=== PATIENT | male | born 1990 | race American Indian/Alaskan Native ===

== ENCOUNTER 2018-10-08 06:14 | Emergency (ER) | payer OTHER ==
[2018-10-08 06:20] VITALS: BP 123/78
[2018-10-08 06:54] LABS: Bilirubin,Urine NEG (Negative); Blood,Urine NEG (Negative); Color,Urine Yellow (Yellow); Hyaline Casts,Urine 3 /LPF; Mucus,Urine 3+ /HPF; Protein,Urine <15 mg/dL mg/dL (Negative); Urobilinogen,Urine < 2.0 mg/dL (<2.0)
[2018-10-08 07:23] LABS: Basophils % (Auto) 0.4 % (0.0-1.8); Eosinophils # (Auto) 0.1 K/mm3 (0.0-0.4); Eosinophils % (Auto) 1.3 % (0.0-4.3); Hematocrit 45.5 % (35.5-45.6); Hemoglobin 15.6 gm/dl (11.8-15.2); Lymphocytes # (Auto) 1.7 K/mm3 (1.2-5.4); Lymphocytes % (Auto) 19.5 % (13.4-35.0); Mean Corpuscular HGB Conc 34 % (32-34); Mean Corpuscular Volume 88 fl (84-94); Monocytes # (Auto) 0.5 K/mm3 (0.0-0.8); Monocytes % (Auto) 6.1 % (0.0-7.3); Platelet Count 253 K/mm3 (140-440); Red Blood Count 5.18 M/mm3 (3.65-5.03); Red Cell Distribution Width 14.2 % (13.2-15.2)
[2018-10-08] MEDS ORDERED: ALUM-MAG HYDROX-SIMETH 200-200-20MG/5ML PO ONE (07:29)
[2018-10-08] MEDS ORDERED: LIDOCAINE VISCOUS 2% PO ONE (07:29)
[2018-10-08] MEDS ORDERED: ZOFRAN ODT PO ONE (07:29)
[2018-10-08] MEDS ORDERED: PEPCID PO ONE (07:29)
--- NOTE | 2018-10-08 07:47 | Emergency Department Report ---
Vomiting/Diarrhea - HPI Chief Complaint: Abdominal Pain Stated Complaint: EMESIS/ABD PAIN Time Seen by Provider: 10/08/18 07:12 Duration: 3 Days Severity: mild Nausea/Vomiting Severity: None Diarrhea Severity: None Pain Severity: None Symptoms: Yes Able to Tolerate Fluids, No Watery Diarrhea, No Bloody diarrhea, No Fever, No Recent Unusual Foods, No Recent Untreated Water, No Recent use of Antibiotics, No Family w/ Similar Symptoms, No Contacts w/ Similar Symptoms, No Rash, No Hematuria, No Recent URI Symptoms Other History: Pt comes to ER with feeling sluggish after work. No diarrhea. [place] of vomiting at home. cough for 3 days. no fever. did not take anything prior to coming to ER. ambulatory ED Review of Systems ROS: Stated complaint: EMESIS/ABD PAIN Other details as noted in HPI Comment: All other systems reviewed and negative ED Past Medical Hx - Past Medical History Previous Medical History?: Yes Hx HIV: Yes Additional medical history: sickle cell trait - Surgical History Past Surgical History?: Yes Hx Appendectomy: Yes Additional Surgical History: testicle removed - Family History Family history: no significant - Social History Smoking Status: Never Smoker Substance Use Type: None - Medications Home Medications: Home Medications Medication Instructions Recorded Confirmed Last Taken Type Ondansetron [Zofran Odt] 4 mg PO Q8HR PRN #10 tab.rapdis 10/08/18 Unknown Rx Vomiting Diarrhea Exam - Exam General: Vital signs noted. No distress. Alert and acting appropriately. HEENT: Yes Moist Mucous Membranes, No Pharyngeal Erythema, No Pharyngeal Ex udates, No Rhinorrhea, No Conjuctival Injection Neck: No Adenopathy, No Rigidity Lungs: Yes Clear Lung Sounds, Yes Good Air Exchange, Yes Cough (per pt), No Wheezes, No Stridor Heart exam: Regular: Yes Abdomen: Tenderness: No Skin exam: Rash: No Neurologic: Alert and oriented, no deficits. Musculoskeletal: Unremarkable. ED Course Vital Signs 10/08/18 10/08/18 06:18 07:41 Temperature 97.8 F Pulse Rate 75 Respiratory 18 18 Rate Blood Pressure 123/78 [Right] O2 Sat by Pulse 100 99 Oximetry ED Medical Decision Making - Lab Data Result diagrams: 10/08/18 06:29 10/08/18 06:29 - Medical Decision Making Lab Results 10/08/18 10/08/18 10/08/18 Range/Units 06:27 06:29 06:29 WBC 8.8 (4.5-11.0) K/mm3 RBC 5.18 H (3.65-5.03) M/mm3 Hgb 15.6 H (11.8-15.2) gm/dl Hct 45.5 (35.5-45.6) % MCV 88 (84-94) fl MCH 30 (28-32) pg MCHC 34 (32-34) % RDW 14.2 (13.2-15.2) % Plt Count 253 (140-440) K/mm3 Lymph % (Auto) 19.5 (13.4-35.0) % [place] % (Auto) 6.1 (0.0-7.3) % Eos % (Auto) 1.3 (0.0-4.3) % Baso % (Auto) 0.4 (0.0-1.8) % Lymph # 1.7 (1.2-5.4) K/mm3 [place] # 0.5 (0.0-0.8) K/mm3 Eos # 0.1 (0.0-0.4) K/mm3 Baso # 0.0 (0.0-0.1) K/mm3 Seg Neutrophils % 72.7 H (40.0-70.0) % Seg Neutrophils # 6.4 (1.8-7.7) K/mm3 Sodium 142 (137-145) mmol/L Potassium 4.9 (3.6-5.0) mmol/L Chloride 101.2 (98-107) mmol/L Carbon Dioxide 25 (22-30) mmol/L Anion Gap 21 mmol/L BUN 11 (9-20) mg/dL Creatinine 1.0 (0.8-1.5) mg/dL Estimated GFR > 60 ml/min BUN/Creatinine Ratio 11 % Glucose 95 (75-100) mg/dL Calcium 9.3 (8.4-10.2) mg/dL Total Bilirubin 0.30 (0.1-1.2) mg/dL AST 22 (5-40) units/L ALT 20 (7-56) units/L Alkaline Phosphatase 54 (35-129) units/L Total Protein 8.6 H (6.3-8.2) g/dL Albumin 4.6 (3.9-5) g/dL Albumin/Globulin Ratio 1.2 % Lipase 16 (13-60) units/L Urine Color Yellow (Yellow) Urine Turbidity Slightly-cloudy (Clear) Urine pH 6.0 (5.0-7.0) Ur Specific [place] 1.024 (1.003-1.030) Urine Protein <15 mg/dl (Negative) mg/dL Urine Glucose (UA) Neg (Negative) mg/dL Urine Ketones Neg (Negative) mg/dL Urine Blood Neg (Negative) Urine Nitrite Neg (Negative) Urine Bilirubin Neg (Negative) Urine Urobilinogen < 2.0 (<2.0) mg/dL Ur Leukocyte Esterase Neg (Negative) Urine WBC (Auto) 1.0 (0.0-6.0) /HPF Urine RBC (Auto) 9.0 (0.0-6.0) /HPF U Epithel Cells (Auto) < 1.0 (0-13.0) /HPF Urine Bacteria (Auto) 1+ (Negative) /HPF Hyaline Casts 3 /LPF Urine Mucus 3+ /HPF Vital Signs 10/08/18 10/08/18 06:18 07:41 Temperature 97.8 F Pulse Rate 75 Respiratory 18 18 Rate Blood Pressure 123/78 [Right] O2 Sat by Pulse 100 99 Oximetry long discussion with pt and family. He is not newly diagnosed with HIV but every time he gets ill he gets nervous. He is on no meds- we discussed the role of meds. no fever no chills no travel VSS no vomiting in ER. taking po ambulatory dc home with follow up. - Differential Diagnosis ro infectious etiology Critical care attestation.: If time is entered above; I have spent that time in minutes in the direct care of this critically ill patient, excluding procedure time. ED Disposition Clinical Impression: Vomiting, HIV (human immunodeficiency virus infection) Disposition: DC-01 TO HOME OR SELFCARE Is pt being admited?: No Does the pt Need Aspirin: No Condition: Stable Instructions: Acute Nausea and Vomiting (ED) Additional Instructions: DIET TOLERATED MEDS ORDERED TODAY IN ER FOLLOW INSTRUCTIONS ON THE BOTTLE FOLLOW UP PCP WITHIN 48 HOURS TO ENSURE YOU ARE GETTING BETTER ACTIVITY TOLERATED MOTRIN OR TYLENOL FOR PAIN OR FEVER RETURN TO THE ER FOR WORSENING SYMPTOMS NOT RELIEVED BY YOUR MEDICATIONS. Prescriptions: Ondansetron [Zofran Odt] 4 mg PO Q8HR PRN #10 tab.rapdis PRN Reason: Vomiting Referrals: [facility] [Outside] - 3-5 Days Time of Disposition: 08:25
[2018-10-08 08:06] LABS: Alanine Aminotransferase 20 units/L (7-56); Albumin 4.6 g/dL (3.9-5); BUN/Creatinine Ratio 11; Blood Urea Nitrogen 11 mg/dL (9-20); Calcium 9.3 mg/dL (8.4-10.2); Hemolysis Index 30
[2018-10-08 08:35] LABS: Bacteria,Urine 1+ /HPF (Negative)
== END 2018-10-08 08:39 | disposition home or self-care (01) ==
LOC: ED 06:14
DX: R11.10 Vomiting, unspecified (principal)
CPT/HCPCS: 36415; 80053; 81001; 83690; 85025; 99283; Q0162

== ENCOUNTER 2019-11-20 19:31 | Emergency (ER) | payer SELFPAY ==
[2019-11-20 20:30] VITALS: BP 124/76
[2019-11-20 21:30] LABS: Basophils % (Auto) 0.5 % (0.0-1.8); Eosinophils # (Auto) 0.1 K/mm3 (0.0-0.4); Eosinophils % (Auto) 1.1 % (0.0-4.3); Hematocrit 45.4 % (35.5-45.6); Hemoglobin 15.5 gm/dl (11.8-15.2); Lymphocytes # (Auto) 1.8 K/mm3 (1.2-5.4); Lymphocytes % (Auto) 24.3 % (13.4-35.0); Mean Corpuscular HGB Conc 34 % (32-34); Mean Corpuscular Volume 88 fl (84-94); Monocytes # (Auto) 0.7 K/mm3 (0.0-0.8); Monocytes % (Auto) 9.3 % (0.0-7.3); Platelet Count 244 K/mm3 (140-440); Red Blood Count 5.17 M/mm3 (3.65-5.03); Red Cell Distribution Width 12.4 % (13.2-15.2)
[2019-11-20 21:50] LABS: Alanine Aminotransferase 27 units/L (7-56); Albumin 4.5 g/dL (3.9-5); BUN/Creatinine Ratio 16; Blood Urea Nitrogen 14 mg/dL (9-20); Calcium 8.8 mg/dL (8.4-10.2); Hemolysis Index 17
== END 2019-11-20 23:20 | disposition left against medical advice (07) ==
LOC: ED 19:31
DX: R51 Headache (principal); R11.10 Vomiting, unspecified; Z53.21 Procedure and treatment not carried out due to patient leaving prior to being seen by health care provider
CPT/HCPCS: 36415; 80053; 83690; 85025

== ENCOUNTER 2020-03-03 11:28 | Emergency (ER) | payer SELFPAY ==
[2020-03-03 11:43] VITALS: BP 147/83
--- NOTE | 2020-03-03 12:13 | Event Note ---
ED Screening Note Date of service: 03/03/20 Time: 12:12 ED Screening Note: Patient complains of painful groin abscess x2 days This initial assessment/diagnostic orders/clinical plan/treatment(s) is/are subject to change based on patients health status, clinical progression and re- assessment by fellow clinical providers in the ED. Further treatment and workup at subsequent clinical providers discretion. Patient/guardian urged not to elope from the ED as their condition may be serious if not clinically assessed and managed. Initial orders include: Further assessment in ACC
--- NOTE | 2020-03-03 15:27 | Emergency Department Report ---
Abscess Boil HPI - HPI Chief Complaint: Skin/Abscess/Foreign Body Stated Complaint: SWOLLEN RT GROIN Time Seen by Provider: 03/03/20 12:12 Duration: 4 Days History: Yes Pain, No Fever, No Purulent Drainage, No Numbness, No Foreign Body, No Previous History, No Insect Bite HPI: This pleasant 29-year-old male presents the emergency department for evaluation of a painful abscess to the right inguinal area. Patient reports this has been present for the past 4 days. States it started out as small over the past few days it has become much larger. He denies any known past medical history, current medication use or known allergies to medications. Reports pain is 9 out of 10 describes it as dull and throbbing, aggravated with movement and palpation and there are no alleviating factors. He denies any associated fever, chills, night sweats, headache, dizziness, blurry vision, nausea, vomiting, diarrhea, chest pain, shortness of breath. Home Medications: Previous Rx's Medication Instructions Recorded Last Taken Type Ondansetron [Zofran Odt] 4 mg PO Q8HR PRN #10 tab.rapdis 10/08/18 Unknown Rx Sulfamethoxazole/Trimethoprim 1 each PO BID #20 tablet 03/03/20 Unknown Rx [Bactrim DS TAB] traMADoL [Ultram 50 MG tab] 50 mg PO Q6HR PRN #12 tablet 03/03/20 Unknown Rx Allergies/Adverse Reactions: Allergies Allergy/AdvReac Type Severity Reaction Status Date / Time No Known Allergies Allergy Verified 10/08/18 06:17 ED Review of Systems ROS: Stated complaint: SWOLLEN RT GROIN Other details as noted in HPI Comment: All other systems reviewed and negative Constitutional: denies: chills, fever Eyes: denies: eye pain, eye discharge, vision change ENT: denies: ear pain, throat pain Respiratory: denies: cough, shortness of breath, wheezing Cardiovascular: denies: chest pain, palpitations Endocrine: no symptoms reported Gastrointestinal: denies: abdominal pain, nausea, diarrhea Genitourinary: denies: urgency, dysuria Musculoskeletal: denies: back pain, joint swelling, arthralgia Skin: as per HPI. denies: rash, lesions Neurological: denies: headache, weakness, paresthesias Psychiatric: denies: anxiety, depression Hematological/Lymphatic: denies: easy bleeding, easy bruising ED Past Medical Hx - Past Medical History Previous Medical History?: Yes Hx HIV: Yes Additional medical history: sickle cell trait - Surgical History Past Surgical History?: Yes Hx Appendectomy: Yes Additional Surgical History: testicle removed - Social History Smoking Status: Unknown if ever smoked Substance Use Type: None - Medications Home Medications: Home Medications Medication Instructions Recorded Confirmed Last Taken Type Ondansetron [Zofran Odt] 4 mg PO Q8HR PRN #10 tab.rapdis 10/08/18 Unknown Rx Sulfamethoxazole/Trimethoprim 1 each PO BID #20 tablet 03/03/20 Unknown Rx [Bactrim DS TAB] traMADoL [Ultram 50 MG tab] 50 mg PO Q6HR PRN #12 tablet 03/03/20 Unknown Rx ED Abscess Boil Physical Exam - Exam General: Vital signs noted. No distress. Alert and acting appropriately. Size: 4 cm Exam: Yes Tenderness, Yes Fluctuance, Yes Surrounding Cellulites/Erythema, Yes Normal Neurologic Exam, Yes Normal Circulation, No Lymphangitis, No Crepitation, No Heart Murmur Exam: There is a 3 cm abscess to the right inguinal area with a large amount of fluctuance. No crepitus. Minimal surrounding erythema. This does not communicate with the scrotum. No testicular tenderness. There is no induration to the scrotum. I & D Note - I & D Note I & D Note: After verbal consent was obtained the area was thoroughly cleaned with Betadine. I then injected 1% lidocaine without epinephrine approximately 3 cc was used. I then used an 11 blade made a 1 cm incision over the area of most fluctuance. A copious amount of purulent drainage was expressed approximately 20 mL. The area was deloculated and irrigated. The area was then packed with quarter inch iodoform packing approximately 5 cm was used. Patient tolerated this well. Less than 5 mL blood loss. ED Course Vital Signs 03/03/20 11:42 Temperature 98 F Pulse Rate 75 Respiratory 16 Rate Blood Pressure 147/83 [Right] O2 Sat by Pulse 98 Oximetry Critical care attestation.: If time is entered above; I have spent that time in minutes in the direct care of this critically ill patient, excluding procedure time. ED Medical Decision Making - Medical Decision Making Abscess was drained without complication. No evidence of involvement in the scrotum, no evidence of Keith's gangrene, patient will be discharged with antibiotics, pain medication and recommended warm compresses or warm soapy soaks. Recommend he return to the emerge part if he develops any change or worsening symptoms. He verbalized understanding the diagnosis, treatment plan and follow-up instructions. Recommended he remove packing in 2 to 3 days. He verbalized understanding of these instructions and all his questions were answered. - Differential Diagnosis Abscess, cellulitis, ingrown hair ED Disposition Clinical Impression: Subcutaneous abscess Qualifiers: Site of cutaneous abscess: other site Qualified Code(s): L02.818 - Cutaneous abscess of other sites Disposition: DC- TO HOME OR SELFCARE Is pt being admited?: No Condition: Stable Instructions: Skin Abscess Additional Instructions: The packing needs to be removed in 2 to 3 days. Remember to continue to do warm soapy soaks or warm moist compresses. Finish the antibiotics till they are completely gone. Return to the emergency department any change or worsening symptoms. Prescriptions: Sulfamethoxazole/Trimethoprim [Bactrim DS TAB] 1 each PO BID #20 tablet traMADoL [Ultram 50 MG tab] 50 mg PO Q6HR PRN #12 tablet PRN Reason: Pain Referrals: [facility] [Provider Group] - 3-5 Days Forms: Work/School Release Form(ED) Time of Disposition: 15:27
== END 2020-03-03 15:57 | disposition home or self-care (01) ==
LOC: ED 11:28
DX: L02.91 Cutaneous abscess, unspecified (principal); Z79.899 Other long term (current) drug therapy; Z21 Asymptomatic human immunodeficiency virus [HIV] infection status; Z98.890 Other specified postprocedural states; Z90.49 Acquired absence of other specified parts of digestive tract

== ENCOUNTER 2020-04-26 10:47 | Emergency (ER) | payer SELFPAY ==
[2020-04-26 10:58] VITALS: BP 110/72
--- NOTE | 2020-04-26 11:10 | Emergency Department Report ---
- General Chief Complaint: Headache Stated Complaint: HEADACHE/WEAKNESS Time Seen by Provider: 04/26/20 11:01 Source: patient Mode of arrival: Ambulatory Limitations: No Limitations - History of Present Illness Initial Comments: This is a 30-year-old male nontoxic, well nourished in appearance, no acute signs of distress presents to the ED with c/o of frontal sinus headache, prod uctive cough, generalized weakness, rhinorrhea, nasal congestion x several days. Patient describes productive cough as yellow mucus production. Patient denies any sick contact. Patient denies any recent travels, long car, recent hospital stays. Patient denies any calf pain or calf tenderness. Patient denies any chest pain, short of breath, fever, chills, nausea, vomiting, hemoptysis, numbness, tingling, headache or stiff neck. Patient denies any allergies or significant past medical history. MD Complaint: cough, rhinorrhea, nasal congestion, sinus pain -: days(s) Severity: mild Severity scale (0 -10): 3 Quality: aching Consistency: constant Improves With: nothing Worsens With: nothing Associated Symptoms: denies other symptoms, rhinorrhea, nasal congestion, cough. denies: fever, chills, myalgias, diaphoresis, headache, sore throat, stiff neck, chest pain, shortness of breath, abdominal pain, nausea, vomiting, diarrhea, dysuria, rash, confusion, right sweats, weight loss, epistaxis, hoarseness, ear pain Treatments Prior to Arrival: none - Related Data Previous Rx's Medication Instructions Recorded Last Taken Type Ondansetron [Zofran Odt] 4 mg PO Q8HR PRN #10 tab.rapdis 10/08/18 Unknown Rx Sulfamethoxazole/Trimethoprim 1 each PO BID #20 tablet 03/03/20 Unknown Rx [Bactrim DS TAB] traMADoL [Ultram 50 MG tab] 50 mg PO Q6HR PRN #12 tablet 03/03/20 Unknown Rx Amoxicillin/K Clav Tab [Augmentin 1 tab PO Q12HR #20 tab 04/26/20 Unknown Rx 875 mg] Allergies Allergy/AdvReac Type Severity Reaction Status Date / Time No Known Allergies Allergy Verified 04/26/20 10:53 ED Review of Systems ROS: Stated complaint: HEADACHE/WEAKNESS Other details as noted in HPI Comment: All other systems reviewed and negative Constitutional: denies: chills, fever Eyes: denies: eye pain, eye discharge, vision change ENT: congestion. denies: ear pain, throat pain Respiratory: cough. denies: shortness of breath, wheezing Cardiovascular: denies: chest pain, palpitations Endocrine: no symptoms reported Gastrointestinal: denies: abdominal pain, nausea, diarrhea Genitourinary: denies: urgency, dysuria Musculoskeletal: denies: back pain, joint swelling, arthralgia Skin: denies: rash, lesions Neurological: headache. denies: weakness, paresthesias Psychiatric: denies: anxiety, depression Hematological/Lymphatic: denies: easy bleeding, easy bruising ED Past Medical Hx - Past Medical History Hx HIV: Yes Additional medical history: sickle cell trait - Surgical History Hx Appendectomy: Yes Additional Surgical History: testicle removed - Social History Smoking Status: Current Every Day Smoker Substance Use Type: None - Medications Home Medications: Home Medications Medication Instructions Recorded Confirmed Last Taken Type Ondansetron [Zofran Odt] 4 mg PO Q8HR PRN #10 tab.rapdis 10/08/18 Unknown Rx Sulfamethoxazole/Trimethoprim 1 each PO BID #20 tablet 03/03/20 Unknown Rx [Bactrim DS TAB] traMADoL [Ultram 50 MG tab] 50 mg PO Q6HR PRN #12 tablet 03/03/20 Unknown Rx Amoxicillin/K Clav Tab [Augmentin 1 tab PO Q12HR #20 tab 04/26/20 Unknown Rx 875 mg] ED Physical Exam - General Limitations: No Limitations General appearance: alert, in no apparent distress - Head Head exam: Present: atraumatic, normocephalic - Eye Eye exam: Present: normal appearance, PERRL, EOMI - ENT ENT exam: Present: normal exam, normal orophraynx - Neck Neck exam: Present: normal inspection, full ROM. Absent: tenderness, lymphadenopathy - Respiratory Respiratory exam: Present: normal lung sounds bilaterally. Absent: respiratory distress, wheezes, rales, rhonchi, stridor, chest wall tenderness, accessory muscle use, decreased breath sounds, prolonged expiratory - Cardiovascular Cardiovascular Exam: Present: regular rate, normal rhythm, normal heart sounds. Absent: bradycardia, tachycardia, irregular rhythm, systolic murmur, diastolic murmur, rubs, gallop - Extremities Exam Extremities exam: Present: full ROM - Back Exam Back exam: Present: full ROM - Neurological Exam Neurological exam: Present: alert, oriented X3, normal gait - Expanded Neurological Exam Expanded Patient oriented to: Present: person, place, time Cranial nerves: EOM's Intact: Normal, Facial Sensation: Normal Cerebellar function: Finger to Nose: Normal Upper motor neuron: Pronator Drift: Normal, Sensory Extinction: Normal Motor strength exam: RUE: 5, LUE: 5, RLE: 5, LLE: 5 Best Eye Response ([place]): (4) open spontaneously Best Motor Response ([place]): (6) obeys commands Best Verbal Response ([place]): (5) oriented [place] Total: 15 - Psychiatric Psychiatric exam: Present: normal affect, normal mood - Skin Skin exam: Present: warm, dry, intact, normal color. Absent: rash - Other Other exam information: Frontal sinus tenderness ED Course Vital Signs 04/26/20 10:56 Temperature 98.0 F Pulse Rate 80 Respiratory 16 Rate Blood Pressure 110/72 O2 Sat by Pulse 96 Oximetry - Reevaluation(s) Reevaluation #1: 04/26/20 11:09 Patient is speaking in full sentences with no signs of distress noted. ED Medical Decision Making - Radiology Data Referring Physician: BO GREWAL Patient Name: ZANA SANON Date of : 1990 Sex: Male Report Date: 2020-04-26 Report Status: Finalized [place] [id number] XRay Report Signed Patient: ZANA SANON JR MR#: [id number] 133 : 1990 Acct:[id number] Age/Sex: 30 / M ADM Date: 04/26/20 Loc: ED Attending Dr: Ordering Physician: BO GREWAL NP Date of Service: 04/26/20 Procedure(s): XR chest routine 2V Accession Number(s): [id number] cc: BO GREWAL NP Fluoro Time In Minutes: CHEST 2 VIEWS, 04/26/2020 11:30 AM INDICATION: Cough COMPARISON: None FINDINGS: Support devices: None. Heart: The cardiac silhouette is normal in size. Lungs/pleura: The lungs are clear of focal airspace disease or significant pleural effusion. Additional findings: No significant acute abnormality. IMPRESSION: 1. No evidence of acute cardiopulmonary process. Signer Name: Moni Aj MD Signed: 04/26/2020 11:43 AM Workstation Name: [id number] Transcribed By: EB Dictated By: Moni Aj MD Electronically Authenticated By: Moni Aj MD Signed Date/Time: 04/26/20 1143 DD/ 1142 TD/TT: - Medical Decision Making This is a 30-year-old male that presents with sinusitis. Patient is stable and was examined by me. Chest x-ray has been obtained and dictated by radiologist with normal exam. Patient is notified of x-ray results with no questions noted. Patient does not meet clinical concerns of COVID-19 but patient was instructed and educated on signs and symptoms and to self quarantine and seek medical attention as soon as possible if symptoms does occur. Patient be treated with Augmentin. Patient was instructed to increase hydration, rest and take Tylenol for fever episodes. Patient was given referrals for Covid swab to be obtained. Vitals stable. Patient is nonfebrile and normal heart rate. Patient was instructed Follow-up with a primary care doctor in 3-5 days or if symptoms worsen and continue return to emergency room as soon as possible. At time time of discharge, the patient does not seem toxic or ill in appearance. No acute signs of distress noted. Patient agrees to discharge treatment plan of care. No further questions noted by the patient.nt. Critical care attestation.: If time is entered above; I have spent that time in minutes in the direct care of this critically ill patient, excluding procedure time. ED Disposition Clinical Impression: Cough Sinusitis Qualifiers: Sinusitis location: frontal Chronicity: acute Recurrence: non-recurrent Qualified Code(s): J01.10 - Acute frontal sinusitis, unspecified Disposition: - TO HOME OR SELFCARE Is pt being admited?: No Does the pt Need Aspirin: No Condition: Stable Instructions: Sinusitis, Adult, [id number] Additional Instructions: Follow-up with a primary care doctor in 3-5 days or if symptoms worsen and continue return to emergency room as soon as possible. As educated and instructed to you must self quarantine yourself and people that you have been in close contact with similar symptoms for the next 14 days. Please see your nearest health department or primary care doctor that you are referred to for COVID testing. Increased rest, hydration, and take Tylenol as prescribed for fever episode. Prescriptions: Amoxicillin/K Clav Tab [Augmentin 875 mg] 1 tab PO Q12HR #20 tab Referrals: PRIMARY CARE, [Referring] - 3-5 Days RAMON MELTON MD [Staff Physician] - 3-5 Days Time of Disposition: 11:54
--- NOTE | 2020-04-26 11:47 | XRay Report ---
CHEST 2 VIEWS, 04/26/2020 11:30 AM INDICATION: Cough COMPARISON: None FINDINGS: Support devices: None. Heart: The cardiac silhouette is normal in size. Lungs/pleura: The lungs are clear of focal airspace disease or significant pleural effusion. Additional findings: No significant acute abnormality. IMPRESSION: 1. No evidence of acute cardiopulmonary process. Signer Name: Moni Aj MD Signed: 04/26/2020 11:43 AM Workstation Name: [id number]
== END 2020-04-26 12:07 | disposition home or self-care (01) ==
LOC: ED 10:47
DX: J32.9 Chronic sinusitis, unspecified (principal); R05 Cough; F17.200 Nicotine dependence, unspecified, uncomplicated; Z79.899 Other long term (current) drug therapy; Z21 Asymptomatic human immunodeficiency virus [HIV] infection status; Z98.890 Other specified postprocedural states; Z90.49 Acquired absence of other specified parts of digestive tract
CPT/HCPCS: 71046

== ENCOUNTER 2021-05-12 10:13 | Emergency (ER) | payer SELFPAY | END 2021-05-12 12:50 | disposition left against medical advice (07) | LOC: ED 10:13 | DX: R10.9 Unspecified abdominal pain (principal); Z53.21 Procedure and treatment not carried out due to patient leaving prior to being seen by health care provider ==